=== PATIENT | male | born 1950 | race African-American/Black ===

== ENCOUNTER 2019-05-04 11:11 | Observation (INO) ==
--- NOTE | 2019-05-04 12:02 | Diag Imaging Result Doc PS360 ---
EXAM: CHEST-2 VIEWS 05/04/2019 HISTORY: productive cough x 2 weeks TECHNIQUE: PA and lateral chest COMMENT: There is cardiomegaly and increased pulmonary vascularity. The lungs are not as well-expanded as on 07/25/2016. There is opacity posteriorly in the left lower lobe silhouetting the diaphragm. This was also present on 12/05/2013 and may be due to fibrosis. IMPRESSION: No evidence of acute disease. Electronically signed by Constantine Ba 05/04/2019 12:00 PM
[2019-05-04 12:36] LABS: EOS# 0.13 X1000 (0.0-0.7); EOS% 1.7 % (0.0-10.0); HEMATOCRIT 40.6 % (42.0-52.0); HEMOGLOBIN 12.5 g/dL (14.0-18.0); IMM GRAN# 0.05 X1000 (0.0-0.04); IMM GRAN% 0.6 % (0.0-0.5); MCH 24.7 PG (27-31); MCHC 30.8 g/dL (33-37); MCV 80.2 FL (81-99); MONO# 0.59 X1000 (0.11-0.59); MONO% 7.6 % (1.7-9.3); MPV 11.4 FL (7.4-10.4); NEUT# 6.28 X1000 (1.4-6.5); NEUT% 81.1 % (42.2-75.2); PLT 186 X1000 (130-400); RBC 5.06 XMIL (4.7-6.1); RDW 15.1 % (11.5-14.5); WBC 7.75 X1000 (4.8-10.8)
[2019-05-04 12:55] LABS: ALBUMIN 3.7 g/dL (3.5-5.0); CALCIUM 8.5 mg/dL (8.8-10.2); CREATININE 1.5 mg/dL (0.7-1.2); POTASSIUM 4.5 mmol/L (3.5-5.1); TOTAL PROTEIN 5.6 g/dL (6.3-8.3)
[2019-05-04] MEDS ORDERED: LASIX IV ONE (13:46)
--- NOTE | 2019-05-04 14:18 | PROVIDER DOCUMENTATION ---
This chart was entered by Cleopatra Murguia Scribe, acting as scribe for Jordy Green MD. HPI-General Adult - General Chief Complaint: Cough Stated Complaint: COUGH/WEAKNESS/DIARRHEA Time Seen by Provider: 05/04/19 11:26 Source: patient Allergies/Adverse Reactions: Patient Allergies Allergy/AdvReac Type Severity Reaction Status Date / Time propoxyphene HCl * Allergy Severe ITCHING Verified 05/04/19 11:35 [From Darvon] hydrocodone bitartrate * Allergy Mild ITCHING Verified 05/04/19 11:35 [From Lortab] codeine Allergy ITCHING Verified 05/04/19 11:35 Home Medications: Home Medication List Medication Instructions Recorded Confirmed Last Taken Type Cyclosporine 100 mg PO BID 11/24/12 05/04/19 07/25/16 07:30 History Digoxin [Lanoxin] 125 microgm PO DAILY 11/24/12 05/04/19 07/25/16 07:30 History Mycophenolate Mofetil [Cellcept] 1,000 mg PO BID 11/24/12 05/04/19 07/25/16 07:30 History Prednisone 10 mg PO DAILY 11/24/12 05/04/19 07/25/16 07:30 History Metoprolol Succinate 200 mg PO DAILY 08/03/13 05/04/19 07/25/16 07:30 History Atorvastatin Calcium 40 mg PO HS 07/25/16 05/04/19 07/24/16 21:00 History Insulin Glargine [Lantus] 40 units SUBQ QAM 07/25/16 05/04/19 07/25/16 08:00 History Insulin Regular, Human [Novolin R] 4 units SQ QAM & NOON 07/25/16 05/04/19 07/25/16 08:00 History Insulin Regular, Human [Novolin R] 8 units SQ WSUPPER 07/25/16 05/04/19 07/24/16 17:00 History Amlodipine [Norvasc] 5 mg PO DAILY 05/04/19 05/04/19 Unknown History Apixaban [Eliquis] 2.5 mg PO DAILY 05/04/19 05/04/19 Unknown History LISINOpril [Prinivil] 10 mg PO DAILY 05/04/19 05/04/19 Unknown History - History of Present Illness -Gen Adult Nature of Presenting Problems: 68 yobm presents to the ed with c/o productive cough, weakness and intermittent chest wall pain with cough. [facility] and sts took the last one this am. pt sts cough has worsened and sputum has darkened since onset. pt on exam is nontoxic in appearance Location of Pain/Injury: reports: chest (chest wall with cough), abdomen (with diarrhea), generalized (weakness) Quality of Pain: reports: aching (with cough in chest wall) Severity: reports: mild Onset/Duration: reports: other (2 weeks) Timing: reports: still present, intermittent, getting worse Context/Activities at Onset: reports: light activity Modifying Factors: worse with: coughing Associated Symptoms: reports: chest pain, cough, diarrhea, EENT symptoms, weak ness. denies: back/neck pain, dizziness, fever/chills, headaches, nausea, shortness of breath, vomiting Similar Symptoms Previously?: Yes Recently seen or treated by another doctor?: Yes (seen at [facility]) Review of Systems - Adult - REVIEW OF SYSTEMS - ADULT Constitutional: denies: chills, fever Eyes: reports: no symptoms reported Ears, Nose, Mouth & Throat: reports: see HPI, sinus problem, throat pain Cardiovascular: reports: see HPI, chest pain. denies: palpitations, syncope Respiratory: reports: see HPI, cough, dyspnea on exertion, excessive sputum production, wheezing. denies: shortness of breath Gastrointestinal: reports: see HPI, abdominal pain, diarrhea. denies: nausea, vomiting Genitourinary: reports: no symptoms reported Musculoskeletal: reports: other (genralized weakness). denies: back pain, neck pain Integumentary: reports: no symptoms reported Neurological: denies: dizziness/vertigo, headache/migraines Psychiatric: reports: no symptoms reported Endocrine: reports: no symptoms reported Hematologic/Lymphatic: reports: no symptoms reported Allergic/Immunologic: reports: no symptoms reported All Other Systems: Reviewed and Negative Past History - Adult - PAST MEDICAL HISTORY-ADULT Review of Records: reports: Old Records Reviewed, Nursing Assessment Review, Medications Reviewed, Social history reviewed & non-contributory. Major Childhood Illnesses: reports: denies history Cardiovascular: reports: A-Fib, HTN, hyperlipidemia Respiratory: reports: denies history Gastrointestinal: reports: denies history Genitourinary: reports: kidney disease. denies: dialysis (in past had kidney transplant 2002) Musculoskeletal: reports: denies history Neurological: reports: denies history Psychiatric: reports: denies history Endocrine/Immune: reports: Diabetes, immunosuppression Diabetes Type: Type 2 Other Conditions: reports: denies history - PRIOR SURGERIES/PROCEDURES Surgical/Procedure History: reports: appendectomy, orthopedic (extremity), other (kidney transplant) - IMMUNIZATION STATUS Childhood Immunizations: See Nurse Assessment Flu Vaccine: See Nurse Assessment - FAMILY HISTORY Family History: reviewed, not pertinent - SOCIAL HISTORY Smoking: quit greater than 1 year Substance Use: denies Alcohol Use Frequency: never Living Situation: family Physical Exam-General - PHYSICAL EXAM-ADULT Initial Vital Signs Reviewed: Yes - CONSTITUTIONAL General Appearance: appears well, alert, no apparent distress, obese - EYES Eyes: PERRL/EOMI, pink conjunctivae - HEAD, EARS, NOSE, MOUTH & THROAT HENMT: moist mucous membranes, normal ENT inspection - NECK Neck: non-tender, full range of motion, supple, normal inspection - RESPIRATORY Respiratory: chest non-tender, wheezing - CARDIOVASCULAR Cardiovascular: normal peripheral pulses, irregularly irregular (afib) - CHEST (BREASTS) Chest/Breast: deferred - GASTROINTESTINAL (ABDOMEN) Abdominal Exam: normal bowel sounds, non tender, soft - GENITOURINARY Male Genitalia: deferred Rectal Exam: deferred Hemoccult Exam: deferred - MUSCULOSKELETAL Back Exam: normal inspection, no CVA tenderness, no vertebral tenderness Extremity: normal gait, normal capillary refill, pelvis stable, swelling (1+ edema BLE), other (has old scar from dialysis fistula being removed after trasplant) - SKIN Integumentary: normal color, normal turgor, warm/dry - NEUROLOGIC Neurologic: grossly normal - PSYCHIATRIC Psych/Mental Status: normal mood/affect, normal thought content, normal thought process, oriented x 3 Progress - PLAN OF CARE/RESULTS Progress/Plan/Lab Results: Vital Signs - 8 hr 05/04/19 11:15 Temperature 98.3 F Pulse Rate 76 Respiratory Rate 18 Blood Pressure 165/90 O2 Sat by Pulse Oximetry 97 Orders Category Date Time Status CHEST-2 VIEWS [RAD] Stat Exams 05/04/19 11:19 Taken Result Diagrams: 05/04/19 12:25 05/04/19 12:25 - REASSESSMENT Reassessment #1 Time Reassessed: 13:33 Status: improving - EKG 1 Time of EKG reading by physician:: 12:24 EKG Read and Signed by:: Jordy Green EKG Interpretation (*Must complete 3 of following elements*): Abnormal Rate: 77 Rhythm: afib [place]: normal QRS: LVH ID Interval: normal Comments: ST and marked T wave abnormlaity - XRAY 1 XRAY: Bilateral XRAY Study: Chest Impression: See EMR Report (EXAM: CHEST-2 VIEWS 05/04/2019 HISTORY: productive cough x 2 weeks TECHNIQUE: PA and lateral chest COMMENT: There is cardiomegaly and increased pulmonary vascularity. The lungs are not as well- expanded as on 07/25/2016. There is opacity posteriorly in the left lower lobe silhouetting the diaphragm. This was also present on 12/05/2013 and may be due to fibrosis. IMPRESSION: No evidence of acute disease. Electronically signed by Constantine Ba 05/04/2019 12:00 PM 05/04/19 1200 Interpreting Physician: Constantine Ba MD Dictated Date/Time: 05/04/19 1159 cc: Jordy Green MD; Israel Orr MD) - CONSULTS/PCP/HOSPITALIST Notification #1 *Consult/PCP/Hospitalist*: d/w Dr Rodriguez Time Discussed: 14:45 Consult Disposition: Admit Departure - Departure Date of Disposition Decision: 05/04/19 Time of Disposition Decision: 14:45 DIAGNOSIS: CHF (congestive heart failure), Dyspnea, Weakness Disposition: ADMITTED INPATIENT 09 Certified Medical Emergency: Emergent Condition: Stable Referrals and Follow-Ups: Israel Orr MD [Primary Care Provider] - - Critical Care Note This patient required my direct & personal management of CC.: No Attestation - Physician/ TENNILLE Attestation Patient care was provided by Advanced Practice Provider:: No The physician spent face to face time with patient:: Yes Advanced Practice Provider documentation review:: Supervising physician onsite and consulted in the evaluation and care of this patient. The physician did have a face to face encounter with the patient. This chart was documented by the indicated scribe, (Cleopatra Murguia Scribe) and accurately reflects the services I performed and decisions made by me, Jordy Green MD, as attested by the provider's signature.
--- NOTE | 2019-05-04 14:36 | EKG Report ---
Test Performed on : 05/04/2019 12:24:46 PM Test Reason : sob Blood Pressure : / mmHG Vent. Rate : 077 BPM Atrial Rate : 133 BPM P-R Int : 000 ms QRS Dur : 082 ms QT Int : 378 ms P-R-T Axes : 000 010 187 degrees QTc Int : 427 ms Atrial fibrillation. Voltage criteria for left ventricular hypertrophy ST & Marked T wave abnormality, consider anterolateral ischemia Abnormal ECG When compared with ECG of 25-JUL-2016 15:17, Minimal criteria for Septal infarct are no longer present ST now depressed in Anterior leads Unconfirmed Result
[2019-05-04] MEDS ORDERED: HUMULIN R (PARKWAY) SUBQ SCH ×2 (16:00→17:00)
[2019-05-04] MEDS ORDERED: TYLENOL PO PRN ×2 (16:04)
[2019-05-04] MEDS ORDERED: ZOFRAN IV PRN ×2 (16:04)
[2019-05-04] MEDS ORDERED: NITROGLYCERIN SL PRN (16:04)
[2019-05-04] MEDS: HUMALOG (PARKWAY) SUBQ SCH ×2 (17:04→22:51)
[2019-05-04 17:06] LABS: MAGNESIUM 1.4 mg/dL (1.5-2.7)
[2019-05-04] MEDS ORDERED: SANDIMMUNE PO SCH ×2 (21:00)
[2019-05-04] MEDS: CELLCEPT PO SCH (22:06)
[2019-05-04] MEDS: LANTUS INSULIN SUBQ SCH (22:07)
[2019-05-04] MEDS: LIPITOR PO SCH (22:07)
[2019-05-04] MEDS: ZITHROMAX PO SCH (22:14)
[2019-05-04] MEDS: ROCEPHIN 1 GM in NS 50 ML IV SCH (22:14)
--- NOTE | 2019-05-04 22:20 | HISTORY AND PHYSICAL ---
CHIEF COMPLAINT: Cough, weakness and diarrhea. HISTORY OF PRESENT ILLNESS: This is a 68-year-old gentleman with a history of chronic atrial fibrillation, diabetes mellitus type 2 and chronic kidney disease, status post renal transplant. He presents to the emergency room complaining of productive cough with weakness, intermittent chest wall pain with a cough that has been present for over a week. He was evaluated at the [facility] on Wednesday. He was given antibiotics, with his last dose being this morning prior to presenting to the emergency room. He states that the cough is increased. Sputum has darkened, therefore prompting his evaluation. He does report some diarrhea over the past week. He denied any fevers, chills, dizziness, palpitations, any shortness of breath, PND or orthopnea. PAST MEDICAL HISTORY: 1. Chronic atrial fibrillation. 2. Hypertension. 3. Hyperlipidemia. 4. Endstage renal disease, status post kidney transplant in 2002, on chronic immunosuppressives. 5. Diabetes mellitus type 2. 6. Peripheral artery disease. 7. Hypertension. PAST SURGICAL HISTORY: Renal transplant, colon resection and left knee surgery. SOCIAL HISTORY: He denies alcohol, tobacco or illicit drug use. ALLERGIES: Darvon, Lortab and codeine which cause itching. HOME MEDICATIONS: A list will be obtained by the nursing staff, and once verified we will review and restart as appropriate. REVIEW OF SYSTEMS: Discussed with the patient, with pertinent positives stated in the HPI. He denied any syncope or dizziness, palpitations, any shortness of breath, any fevers or chills, PND, orthopnea, nausea, vomiting, constipation, black or bloody vomitus or stools, any hematuria, dysuria, frequency or urgency. PHYSICAL EXAMINATION: GENERAL: This is a 68-year-old gentleman who is sitting up in the bed in the emergency room in no distress. VITAL SIGNS: Blood pressure is 142/90 with heart rate of 72, respirations are 18, temperature is 98.1 degrees. Room air saturations are 95% to 99%. HEENT: Head is normocephalic, atraumatic. Mucous membranes are moist. NECK: Supple, with trachea midline. CARDIOVASCULAR: Irregularly irregular rate and rhythm. S1 and S2 are appreciated. No murmur. He has bilateral lower extremity edema. Calves are nontender. Bilateral peripheral pulses palpable x4 extremities. PULMONARY: Breath sounds with wheezing scattered throughout. Chest rises and falls symmetric with respiration. Chest wall is nontender to palpation. GASTROINTESTINAL: Abdomen is soft, nontender, nondistended. Bowel sounds in all 4 quadrants. GENITOURINARY: No CVA or suprapubic tenderness. NEUROLOGIC: He is alert and oriented x3. SKIN: Warm and dry. LABORATORY DATA: WBC is 7.7 with hemoglobin 12.5, hematocrit 40.6 and platelets of 186,000. Sodium 139, potassium 4.5, BUN 29, creatinine 1.5 with glucose of 189. Troponin is less than 0.010 on multiple occasions. DIAGNOSTIC DATA: Chest x-ray reveals no evidence of acute disease, with an opacity posteriorly in the left lower lobe silhouetting the diaphragm, which was present in 2013 and may be due to fibrosis. EKG revealed atrial fibrillation at a rate of 77, with diffuse ST and T-wave abnormalities, with new ST depression in the anterior leads. ASSESSMENT AND PLAN: 1. Productive cough. 2. Chest wall pain present with cough. 3. Abdominal pain with diarrhea. 4. Electrocardiogram changes. 5. Chronic kidney disease in a patient who is status post kidney transplant, with a baseline creatinine of 1.5. PLAN: The patient will be admitted to the hospital and placed on telemetry. We will identify his home medications and continue as appropriate. Check Digoxin level Rocephin and azithromycin. stool for C. difficile. Of note, the patient had an echocardiogram on 03/30 which revealed an ejection fraction of 60% to 65%, with mild degree of concentric LVH; normal left ventricular systolic function; no pericardial effusion mass or thrombus seen. CBC, CMP, proBNP as well as a hemoglobin A1c in the morning. trend troponins and cardiac profile. For DVT prophylaxis we will continue his Eliquis, and GI prophylaxis Prilosec. Plan discussed with Dr Rodriguez Further treatments pending hospital course. Dictated by LILLIANA Ozuna for Montez Rodriguez MD cc: LILLIANA Ozuna MD [facility]
--- NOTE | 2019-05-05 01:50 | HISTORY AND PHYSICAL ---
ADDENDUM: CHIEF COMPLAINT: Cough. HISTORY OF PRESENT ILLNESS: The patient is a 68-year-old male who presented to the ER with cough, congestion, increased work of breathing. Notes he has been having some yellowish phlegm. Has a history of high cholesterol as well as atrial fibrillation. He is currently on digoxin. While in the ER, he was noted to go into atrial fibrillation with rapid ventricular response. Therefore, we are going to admit him to the ICU and we will follow. We will check a digoxin level, place him on Lasix for congestive heart failure and further orders as needed. cc: Montez Rodriguez MD
[2019-05-05] MEDS: PRILOSEC PO SCH ×2 (06:11→11:07)
[2019-05-05] MEDS: HUMALOG (PARKWAY) SUBQ SCH ×7 (06:12→21:17)
[2019-05-05 07:13] LABS: HEMATOCRIT 42.2 % (42.0-52.0); HEMOGLOBIN 13.2 g/dL (14.0-18.0); MCH 24.8 PG (27-31); MCHC 31.3 g/dL (33-37); MCV 79.3 FL (81-99); MPV 11.8 FL (7.4-10.4); RBC 5.32 XMIL (4.7-6.1); RDW 14.9 % (11.5-14.5); WBC 6.61 X1000 (4.8-10.8)
[2019-05-05 07:36] LABS: HEMOGLOBIN A1C 8.7 % (4.8-6.0)
[2019-05-05 07:43] LABS: AGAP 11; ALBUMIN 3.6 g/dL (3.5-5.0); ALKALINE PHOSPHATASE 97 U/L (32-122); BUN 25 mg/dL (8-22); CALCIUM 8.7 mg/dL (8.8-10.2); CHLORIDE 102 mmol/L (98-107); CHOLESTEROL 134 mg/dL (0-200); COSMO 288; CREATININE 1.4 mg/dL (0.7-1.2); ESTIMATED GFR 50; GLUCOSE 114 mg/dL (70-104); GOT 18 U/L (10-34); GPT 25 U/L (10-44); HDL 42 mg/dL (35-55); LDL 57 mg/dL; POTASSIUM 3.7 mmol/L (3.5-5.1); SODIUM 142 mmol/L (136-145); TCO2 29 mmol/L (25-35); TOTAL PROTEIN 6.2 g/dL (6.3-8.3); TRIGLYCERIDES 176 mg/dL (39-160); VLDL 35 mg/dL
--- NOTE | 2019-05-05 08:06 | EKG Report ---
Test Performed on : 05/05/2019 08:04:38 AM Test Reason : SOB, AFIB Blood Pressure : / mmHG Vent. Rate : 079 BPM Atrial Rate : 227 BPM P-R Int : 000 ms QRS Dur : 096 ms QT Int : 400 ms P-R-T Axes : 000 -05 168 degrees QTc Int : 458 ms Atrial fibrillation. Voltage criteria for left ventricular hypertrophy Marked ST abnormality, possible anterolateral subendocardial injury Abnormal ECG When compared with ECG of 04-MAY-2019 12:24, (Unconfirmed) No significant change was found Confirmed by Anand Ferro MD ([id number]) on 05/06/2019 11:42:24 AM
[2019-05-05] MEDS ORDERED: ROBITUSSIN-AC PO PRN (08:58)
[2019-05-05] MEDS ORDERED: HUMULIN R (PARKWAY) SUBQ SCH (09:00)
[2019-05-05] MEDS ORDERED: SANDIMMUNE PO SCH (09:00)
[2019-05-05] MEDS: CELLCEPT PO SCH ×2 (11:06→21:16)
[2019-05-05] MEDS: TOPROL XL PO SCH (11:07)
[2019-05-05] MEDS: NORVASC PO SCH (11:07)
[2019-05-05] MEDS: ASPIRIN PO SCH (11:07)
[2019-05-05] MEDS: LANOXIN PO SCH (11:08)
[2019-05-05] MEDS: PREDNISONE PO SCH (11:08)
[2019-05-05] MEDS: ELIQUIS PO SCH (11:09)
[2019-05-05] MEDS: ZITHROMAX PO SCH (11:09)
[2019-05-05] MEDS: PRINIVIL PO SCH (11:09)
[2019-05-05] MEDS ORDERED: ROBITUSSIN-DM PO PRN (12:08)
[2019-05-05] MEDS: SANDIMMUNE PO SCH ×2 (14:00→21:17)
--- NOTE | 2019-05-05 17:37 | PROGRESS NOTE ---
DATE: 05/05/2019 SUBJECTIVE: Patient notes he is still having a cough, but his generalized weakness is improving. Diarrhea has resolved. Denies any fevers or chills. OBJECTIVE: Temperature 98, pulse 89, respiratory rate 18, BP 149/80.General: Patient is awake and alert. He is in no current respiratory distress. HEENT: Normocephalic. Neck: Supple. Cardiovascular: Regular rhythm and rate. Chest: Clear. Abdomen: Soft. Extremities: Moves all extremities. ASSESSMENT: 1. Nausea and vomiting, appears resolved. 2. Cough, improving. 3. Chest wall pain. 4. Chronic kidney disease, status post transplant, stable. PLAN: We will continue the patient in the hospital today. Currently, he is getting an echocardiogram. We will check labs again in the a.m. If magnesium is low, will replace. Further orders as needed. cc: Montez Rodriguez MD
[2019-05-05] MEDS: LANTUS INSULIN SUBQ SCH (21:16)
[2019-05-05] MEDS: ROCEPHIN 1 GM in NS 50 ML IV SCH (21:16)
[2019-05-05] MEDS: LIPITOR PO SCH (21:17)
[2019-05-06] MEDS: HUMALOG (PARKWAY) SUBQ SCH ×5 (06:38→12:44)
[2019-05-06] MEDS: PRILOSEC PO SCH (06:39)
[2019-05-06 08:08] VITALS: BP 143/79
[2019-05-06] MEDS: TOPROL XL PO SCH (09:03)
[2019-05-06] MEDS: ELIQUIS PO SCH (09:03)
[2019-05-06] MEDS: PREDNISONE PO SCH (09:03)
[2019-05-06] MEDS: LANOXIN PO SCH (09:04)
[2019-05-06] MEDS: ASPIRIN PO SCH (09:04)
[2019-05-06] MEDS: PRINIVIL PO SCH (09:04)
[2019-05-06] MEDS: ZITHROMAX PO SCH (09:05)
[2019-05-06] MEDS: SANDIMMUNE PO SCH (09:05)
[2019-05-06] MEDS: NORVASC PO SCH (09:05)
--- NOTE | 2019-05-06 09:09 | ECHO REPORT ---
ORDER DATE: 05/04/2019 MEASUREMENTS: Septal thickness 1.9, left ventricular internal diameter end diastole 4.3, left ventricular posterior wall thickness 1.5, left ventricular internal diameter end-systole 2.3 aortic root 3.7, left atrium 5.4. SUMMARY: 1. Adequate quality study. Intravenous echo contrast agent was utilized to better and evaluate left ventricular function. 2. Aortic valve is trileaflet and demonstrates very mild sclerotic change with normal aortic valve opening evident. Peak gradient across the aortic valve is 15 mmHg in the setting of hyperdynamic left ventricle. There is trace aortic regurgitation. Mitral, tricuspid and pulmonic valves are without evidence of structural abnormality. There is mild mitral regurgitation, mild tricuspid regurgitation, and trace pulmonic insufficiency. The estimated systolic PA pressure by Doppler is 40 mmHg suggesting mild pulmonary hypertension. The aortic root is upper normal in size. 3. Normal left ventricular chamber size with moderate concentric left ventricular hypertrophy is demonstrated. There appears to be a greater degree of hypertrophy involving the apical portion of the left ventricle and during systole, there is obliteration of the apical cavity during systole. Consideration to be given to possible apical hypertrophic cardiomyopathy. Left ventricle is hyperdynamic with estimated ejection fraction greater than 75%. No focal wall motion abnormalities are evident. The left atrium is moderately enlarged. Right atrium and right ventricle normal in size with grossly preserved right ventricular systolic function. 4. No pericardial effusion. 5. Appearance of the inferior vena cava suggests normal central venous pressure. cc: MD Montez Narayan MD
--- NOTE | 2019-05-06 09:24 | EKG Report ---
Test Performed on : 05/06/2019 07:49:45 AM Test Reason : ST ELEVATION Blood Pressure : / mmHG Vent. Rate : 072 BPM Atrial Rate : 250 BPM P-R Int : 000 ms QRS Dur : 080 ms QT Int : 416 ms P-R-T Axes : 000 039 230 degrees QTc Int : 455 ms Atrial fibrillation. Moderate voltage criteria for LVH, may be normal variant ST & Marked T wave abnormality, consider anterolateral ischemia Abnormal ECG When compared with ECG of 05-MAY-2019 08:04, (Unconfirmed) Non-specific change in ST segment in Inferior leads T wave inversion more evident in Inferior leads Confirmed by Anand Ferro MD ([id number]) on 05/06/2019 11:41:27 AM
[2019-05-06] MEDS: CELLCEPT PO SCH ×2 (12:40→12:44)
--- NOTE | 2019-05-06 13:43 | DISCHARGE SUMMARY ---
ADMISSION DATE: 05/04/2019 DISCHARGE DATE: 05/06/2019 DIAGNOSES: 1. Nausea and vomiting, resolved. 2. Cough, improving. 3. Chest wall pain. 4. Chronic kidney disease, status post transplant with a baseline creatinine of 1.5. 5. Abdominal pain with diarrhea, resolved. DIAGNOSTICS: 1. Chest x-ray revealed no evidence of acute disease. 2. Echocardiogram revealed ejection fraction of 75% with no focal wall motion abnormalities evident. Left ventricle is hyperdynamic. There appears to be a greater degree of hypertrophy involving the apical portion of the left ventricle during systole with obliteration of the apical cavity during systole. Consideration to be given to possible apical hypertrophic cardiomyopathy. HOSPITAL COURSE: Mr. Hutson presented to the emergency room complaining of cough, weakness and diarrhea. We continued his home medications, as he had been put on antibiotics by the [facility] doctor outpatient, we started Rocephin and azithromycin. He remained afebrile with white count within normal limits. Abdominal pain, nausea, vomiting, and diarrhea resolved shortly after admission. He tolerated a healthy heart diet and ate 100% x2 meals with no complaints. He ruled out with troponins, and thankfully he is ready for discharge. DISCHARGE VITAL SIGNS: Blood pressure is 143/79, heart rate of 68, respirations 16, temperature 98.3 degrees, with room air saturations 96% to 98%. DISCHARGE PHYSICAL EXAMINATION: Cardiovascular: Regular rate and rhythm. S1 and S2 appreciated. He has no lower extremity edema. Calves are nontender bilateral with peripheral pulses palpable x4 extremities. Pulmonary: Breath sounds are clear. No increased work of breathing noted. Chest rise and fall symmetric with respiration. Gastrointestinal: Abdomen is soft, nontender, nondistended with bowel sounds in all 4 quadrants. Neurologic: He is alert and oriented x3 Skin: Skin is warm and dry. DISCHARGE MEDICATIONS: 1. Atorvastatin 40 mg p.o. at bedtime. 2. CellCept 2000 mg p.o. b.i.d. 3. Cyclosporine 100 mg p.o. b.i.d. 4. Eliquis 2.5 p.o. daily. 5. Lanoxin 125 mcg p.o. daily. 6. Lantus insulin 40 units subcutaneous at bedtime. 7. Metoprolol succinate 200 mg p.o. daily. 8. Norvasc 5 mg p.o. daily. 9. NovoLog 20 units with breakfast, lunch and supper. 10. Prednisone 10 mg p.o. daily. 11. Prinivil 10 mg p.o. daily. 12. Robitussin DM 10 mL p.o. q.4 hours p.r.n. cough. 13. Omnicef 300 mg p.o. b.i.d. x7 days. 14. Zithromax 250 mg p.o. daily for 5 days. FOLLOWUP: 1. He is to call Dr. Orr, his primary care physician, and to follow up in 1 to 2 weeks. 2. He has been instructed to call to be seen sooner or return to the ER for any syncope, dizziness, chest pain, palpitations, temperature greater than 100.5, any nausea, vomiting, diarrhea, constipation, black or bloody vomitus or stools, hematuria, dysuria, frequency, urgency or for any questions or concerns that he may have. He is being discharged home in stable condition with family members. TIME SPENT: This is a greater than 30 minute discharge. Dictated by LILLIANA Ozuna for Montez Rodriguez MD cc: LILLIANA Ozuna MD Adnan A. Seljuki, MD
--- NOTE | 2019-05-06 18:36 | DISCHARGE SUMMARY ---
ADMISSION DATE: 05/04/2019 DISCHARGE DATE: 05/06/2019 DISCHARGE DIAGNOSES: 1. Diabetes. Uncontrolled. A1c of 8.7. 2. Chronic atrial fibrillation. 3. Cough. 4. Hypertension. 5. Hyperlipidemia. 6. Renal failure, status post transplant, on immunosuppressives. 7. Peripheral artery disease. 8. Hypertension. 9. Productive cough. CONSULTATIONS: None. PROCEDURES: None. BRIEF HOSPITAL COURSE: The patient is a 68-year-old male who presented to [facility] ER secondary to cough, congestion, and is also having some generalized weakness and diarrhea. He was admitted to the hospital. Digoxin level was checked and was normal. He was placed on antibiotics, IV fluids, oxygen. He continued to improve. On discharge, he noted that his cough was much better, and overall stated that he was feeling tremendously better. DISPOSITION: Patient will be discharged home. Discussed with him treatment for his current cough with Omnicef and azithromycin for the next 5 days. [facility] or [facility] Orr. He had been on Trulicity, which he noted was keeping his blood sugars down, and he was actually losing weight. However, the [facility] had asked [facility] to stop the Tr[facility] as they were unclear if that was causing him to itch. As he is still itching several weeks after stopping Trulicity, we will restart it back. Otherwise, no changes were made on his chronic diet or activities. TIME SPENT: Greater than 30 minutes was spent. cc: Montez Rodriguez MD
[2019-05-06] MEDS ORDERED: LANTUS INSULIN SUBQ SCH (21:00)
== END 2019-05-06 14:44 | disposition home or self-care (01) ==
LOC: P.MEDSURG 11:11 → P.ED 11:11
PROVIDERS: ATTEND Family Medicine